=== PATIENT | female | born 1980 | race American Indian/Alaskan Native ===

== ENCOUNTER 2019-03-17 07:33 | Emergency (ER) | payer MEDICAID ==
[~2019-03-17] VITALS: Ht 157.5 cm; Wt 69.7 kg
[~2019-03-17 07:33] MED LIST: ONDA4TAB6 PO; PROM12.512 PO
[2019-03-17] MEDS ORDERED: proCHLORperazine 10 MG/2 ml inj IV PRN (07:55)
[2019-03-17] MEDS ORDERED: normal saline 1000ML IV soln IVB ONE (07:55)
[2019-03-17 08:22] LABS: BASOPHILS # (AUTO) 0.1 X10'3 (0-0.2); BASOPHILS % (AUTO) 0.3 % (0-1); EOSINOPHILS % (AUTO) 0.1 % (0-6); HEMATOCRIT 38.5 % (35.0-45.0); HEMOGLOBIN 13.3 g/dl (12.0-16.0); LYMPHOCYTES # (AUTO) 1.4 X10'3 (1.1-4.8); LYMPHOCYTES % (AUTO) 7.8 % (21-51); MEAN CORPUSCULAR HEMOGLOBIN 31.8 PG (27.0-31.0); MEAN CORPUSCULAR HGB CONC 34.5 g/dL (33.0-36.5); MEAN CORPUSCULAR VOLUME 92.1 FL (78-98); MEAN PLATELET VOLUME 8.3 FL (7.4-10.4); MONOCYTES # (AUTO) 0.6 X10'3 (0-0.9); MONOCYTES % (AUTO) 3.2 % (2-12); NEUTROPHILS # (AUTO) 15.8 X10'3 (1.8-7.7); NEUTROPHILS % (AUTO) 88.6 % (42-75); PLATELET COUNT 422 X10'3 (140-440); RED BLOOD COUNT 4.18 X10'6 (4.20-5.60); RED CELL DISTRIBUTION WIDTH 12.5 % (11.5-14.5); WHITE BLOOD COUNT 17.8 X10'3 (4.5-11.0)
[2019-03-17 08:25] LABS: ALANINE AMINOTRANSFERASE 19 U/L (12-78); ALBUMIN 3.7 G/DL (3.4-5.0); ALBUMIN/GLOBULIN RATIO 0.9 (1.1-1.5); ALKALINE PHOSPHATASE 91 IU/L (46-116); ANION GAP 14 (8-16); ASPARTATE AMINO TRANSFERASE 19 U/L (10-37); BILIRUBIN,TOTAL 0.6 MG/DL (0.1-1.0); BLOOD UREA NITROGEN 11 MG/DL (7-18); BUN/CREATININE RATIO 12.4 (6.6-38.0); CALCIUM 9.3 MG/DL (8.5-10.1); CHLORIDE 104 MMOL/L (99-107); CREATININE 0.89 MG/DL (0.40-0.90); GLUCOSE 156 MG/DL (70-104); LIPASE 66 U/L (73-393); POTASSIUM 3.2 MMOL/L (3.5-5.1); SODIUM 141 MMOL/L (135-145); TOTAL CARBON DIOXIDE 23.1 MMOL/L (24-32); TOTAL PROTEIN 7.9 G/DL (6.4-8.2); eGFR 70 ML/MIN
--- NOTE | 2019-03-17 09:00 | NUR ---
notified of WBC and K levels at this time.
[2019-03-17 09:28] LABS: URINE HCG NEGATIVE (NEG)
[2019-03-17] MEDS ORDERED: potassium Cl 10 mEq/100mL bag IV ONE (09:30)
[2019-03-17 09:44] LABS: CLARITY,URINE CLOUDY (Clear); COLOR,URINE YELLOW (Yellow); GLUCOSE, URINE NEGATIVE (Neg); KETONES,URINE >=80 mg/dl (Neg); LEUKOCYTE ESTERASE ,URINE LARGE (Neg); NITRITES, URINE POSITIVE (Neg); OCCULT BLOOD,URINE LARGE (Neg); PH,URINE 7.5 (4.8-8.0); PROTEIN,URINE 100 mg/dl (Neg)
[2019-03-17 10:07] LABS: UA COLLECTION TYPE CLN CATCH MIDSTREAM
[2019-03-17 10:15] LABS: RBC,URINE 0-2 /HPF (0-2)
[2019-03-17 10:16] LABS: BACTERIA,URINE 4+ /HPF (Neg); MUCUS STRANDS MODERATE /LPF (Neg); SQUAMOUS EPITHELIAL CELL,UR MODERATE /LPF (FEW)
[2019-03-17 10:17] LABS: WBC,URINE 50-100 /HPF (0-4)
[2019-03-17 10:26] VITALS: BP 118/66
[2019-03-17] MEDS ORDERED: CefTRIAXone/D5W-Rocephin 1gm 50 ML IV ONE (10:40)
[2019-03-17] MEDS ORDERED: PROC5TAB56 PO (10:43)
[2019-03-17] MEDS ORDERED: CIPR-230 PO (10:43)
== END 2019-03-17 11:22 | disposition home or self-care (01) ==
LOC: ER 07:34
DX: N39.0 Urinary tract infection, site not specified (principal); E87.6 Hypokalemia; R11.2 Nausea with vomiting, unspecified; Z90.710 Acquired absence of both cervix and uterus; Z98.51 Tubal ligation status; Z98.890 Other specified postprocedural states; Z56.0 Unemployment, unspecified; Z79.2 Long term (current) use of antibiotics; Z79.899 Other long term (current) drug therapy
CPT/HCPCS: 36415; 80053; 81001; 81025; 83690; 85025; 87077; 87088; 87186; 96365; 96367; 96375; 99283; J0696; J0780; J3480; J7030

== ENCOUNTER 2020-10-19 13:57 | Emergency (ER) | payer MEDICAID, OTHER ==
[~2020-10-19] VITALS: Ht 157.5 cm; Wt 67.1 kg
[~2020-10-19 13:57] MED LIST changes: +PROC5TAB56 PO
[2020-10-19 14:06] VITALS: BP 114/72
[2020-10-19] MEDS ORDERED: ondansetron 4mg rapidly disintigrating tab PO ONE (15:05)
[2020-10-19] MEDS ORDERED: HYDROcodone/acetaminophen 5mg/325mg tablet PO ONE (15:05)
[2020-10-19] MEDS ORDERED: AMOX-422 PO (15:06)
[2020-10-19] MEDS ORDERED: IBUP-1984 PO (15:06)
[2020-10-19] MEDS ORDERED: ketorolac tromethamine 15mg/ml inj. IM ONE (15:15)
--- NOTE | 2020-10-19 15:15 | NUR ---
Patient states she cannot take Lorrie Rudd aware. Orders for toradol placed.
[2020-10-20] MEDS ORDERED: FLUO-1 PO (19:27)
[2020-10-20] MEDS ORDERED: BUPR8TAB4 SL (19:27)
[2020-10-20] MEDS ORDERED: LISI1TAB32 PO (19:27)
== END 2020-10-19 15:39 | disposition home or self-care (01) ==
LOC: ER 13:57
DX: K04.7 Periapical abscess without sinus (principal); Z90.710 Acquired absence of both cervix and uterus; Z98.51 Tubal ligation status; Z56.0 Unemployment, unspecified; Z79.899 Other long term (current) drug therapy
CPT/HCPCS: 96372; 99283; J1885

== ENCOUNTER 2020-11-03 11:19 | Emergency (ER) | payer MEDICAID, OTHER ==
[~2020-11-03] VITALS: Ht 157.5 cm; Wt 65.7 kg
[~2020-11-03 11:19] MED LIST changes: +BUPR8TAB4 SL; +FLUO-1 PO; +LISI1TAB32 PO; -ONDA4TAB6 PO; -PROC5TAB56 PO; -PROM12.512 PO
[2020-11-03 11:24] VITALS: BP 136/82
[2020-11-03] MEDS ORDERED: ketorolac tromethamine 15mg/ml inj. IM ONE (12:35)
[2020-11-03] MEDS ORDERED: AMOX-580 PO (12:37)
[2020-11-03] MEDS ORDERED: FLUC150T PO (12:37)
[2020-11-03] MEDS ORDERED: CHLO473M3 PO (12:37)
== END 2020-11-03 13:05 | disposition home or self-care (01) ==
LOC: ER 11:19
DX: K04.7 Periapical abscess without sinus (principal); Z90.710 Acquired absence of both cervix and uterus; Z98.51 Tubal ligation status; Z72.89 Other problems related to lifestyle; Z56.0 Unemployment, unspecified; Z79.2 Long term (current) use of antibiotics; Z79.899 Other long term (current) drug therapy
CPT/HCPCS: 96372; 99283; J1885

== ENCOUNTER 2020-11-06 05:28 | Emergency (ER) | payer MEDICAID, OTHER ==
[~2020-11-06] VITALS: Ht 157.5 cm; Wt 68.2 kg
[~2020-11-06 05:28] MED LIST changes: +AMOX-580 PO; +CHLO473M3 PO
[2020-11-06] MEDS ORDERED: proCHLORperazine 10 MG/2 ml inj IV ONE (06:00)
[2020-11-06 06:10] LABS: BASOPHILS # (AUTO) 0.1 X10'3 (0-0.2); BASOPHILS % (AUTO) 0.7 % (0-1); EOSINOPHILS # (AUTO) 0.4 X10'3 (0-0.9); EOSINOPHILS % (AUTO) 3.7 % (0-6); HEMATOCRIT 37.1 % (35.0-45.0); HEMOGLOBIN 12.9 g/dl (12.0-16.0); LYMPHOCYTES # (AUTO) 4.2 X10'3 (1.1-4.8); MEAN CORPUSCULAR HEMOGLOBIN 32.7 PG (27.0-31.0); MEAN CORPUSCULAR HGB CONC 34.8 g/dL (33.0-36.5); MEAN CORPUSCULAR VOLUME 93.8 FL (78-98); MONOCYTES # (AUTO) 0.7 X10'3 (0-0.9); MONOCYTES % (AUTO) 6.1 % (2-12); NEUTROPHILS # (AUTO) 5.4 X10'3 (1.8-7.7); NEUTROPHILS % (AUTO) 50.5 % (42-75); PLATELET COUNT 431 X10'3 (140-440); RED BLOOD COUNT 3.96 X10'6 (4.20-5.60); RED CELL DISTRIBUTION WIDTH 12.2 % (11.5-14.5); WHITE BLOOD COUNT 10.7 X10'3 (4.5-11.0)
[2020-11-06 06:24] LABS: ALANINE AMINOTRANSFERASE 12 U/L (12-78); ALBUMIN 3.4 G/DL (3.4-5.0); ALBUMIN/GLOBULIN RATIO 0.9 (1.1-1.5); ALKALINE PHOSPHATASE 74 IU/L (46-116); ANION GAP 11 (8-16); ASPARTATE AMINO TRANSFERASE 23 U/L (10-37); BILIRUBIN,TOTAL 0.2 MG/DL (0.1-1.0); BLOOD UREA NITROGEN 11 MG/DL (7-18); BUN/CREATININE RATIO 13.6 (6.6-38.0); CHLORIDE 106 MMOL/L (99-107); CREATININE 0.81 MG/DL (0.40-0.90); GLUCOSE 116 MG/DL (70-104); LIPASE 66 U/L (73-393); POTASSIUM 3.4 MMOL/L (3.5-5.1); SODIUM 141 MMOL/L (135-145); TOTAL CARBON DIOXIDE 23.8 MMOL/L (24-32); TOTAL PROTEIN 7.2 G/DL (6.4-8.2); eGFR 78 ML/MIN
[2020-11-06] MEDS ORDERED: ONDA4TAB6 PO (06:38)
[2020-11-06] MEDS ORDERED: normal saline 1000ML IV soln IVB ONE ×2 (06:40→08:10)
[2020-11-06] MEDS ORDERED: ondansetron/PF 4mg/2ml inj IV ONE (06:40)
[2020-11-06 06:55] LABS: ETHANOL < 0.010 GM/DL (0.0-0.010)
[2020-11-06 08:31] VITALS: BP 102/68
[2020-11-06 08:46] LABS: URINE HCG NEGATIVE (NEG)
[2020-11-06 08:47] LABS: CLARITY,URINE CLOUDY (Clear); COLOR,URINE YELLOW (Yellow); GLUCOSE, URINE NEGATIVE (Neg); KETONES,URINE >=80 mg/dl (Neg); LEUKOCYTE ESTERASE ,URINE NEGATIVE (Neg); NITRITES, URINE NEGATIVE (Neg); OCCULT BLOOD,URINE NEGATIVE (Neg); PROTEIN,URINE NEGATIVE (Neg)
[2020-11-06 08:54] LABS: MUCUS STRANDS MANY /LPF (Neg); SQUAMOUS EPITHELIAL CELL,UR MANY /LPF (FEW)
[2020-11-06 08:55] LABS: BACTERIA,URINE 1+ /HPF (Neg); WBC,URINE 0-4 /HPF (0-4)
[2020-11-06 09:00] LABS: URINE AMPHETAMINE SCREEN NEGATIVE (Neg); URINE BARBITUATE SCREEN NEGATIVE (Neg); URINE BENZODIAZEPINES SCREEN NEGATIVE (Neg); URINE CANNABINOID SCREEN POSITIVE (Neg); URINE COCAINE SCREEN NEGATIVE (Neg); URINE METHADONE SCREEN NEGATIVE (Neg); URINE OPIATE SCREEN NEGATIVE (Neg); URINE PHENCYCLIDINE SCREEN NEGATIVE (Neg)
[2020-11-06 09:01] LABS: UA COLLECTION TYPE CLN CATCH MIDSTREAM
== END 2020-11-06 09:32 | disposition home or self-care (01) ==
LOC: ER 05:28
DX: A08.4 Viral intestinal infection, unspecified (principal); Z90.710 Acquired absence of both cervix and uterus; Z98.51 Tubal ligation status; Z72.89 Other problems related to lifestyle; Z56.0 Unemployment, unspecified; Z79.899 Other long term (current) drug therapy
CPT/HCPCS: 36415; 80053; 80305; 80320; 81001; 81025; 83690; 85025; 96361; 96374; 96375; 99284; J0780; J2405; J7030

== ENCOUNTER 2021-09-05 06:22 | Day surgery (SDC) | payer OTHER, MEDICAID ==
[~2021-09-05] VITALS: Ht 160 cm; Wt 72.0 kg
[~2021-09-05 06:22] MED LIST changes: -AMOX-580 PO; -LISI1TAB32 PO; +LISI1TAB49 PO; +ONDA4TAB6 PO
[2021-09-05] MEDS ORDERED: normal saline 1000ml 1,000 ML IV SCH (06:40)
[2021-09-05 06:49] VITALS: BP 120/68
[2021-09-05] MEDS ORDERED: [UNRECOGNIZED DRUG - OTHER] PO (06:52)
[2021-09-05] MEDS ORDERED: fentaNYL/PF 50MCG/1 ML 2ML syringe ONE (08:14)
[2021-09-05] MEDS ORDERED: heparin sodium, porcine/PF 100unit/ml 5ML syringe ONE (08:14)
[2021-09-05] MEDS ORDERED: midazolam 1 mg/ML 2ml injection ONE (08:14)
[2021-09-05] MEDS ORDERED: clindamycin 600mg/D5W 50ml 50 ML IV ONE (09:38)
[2021-09-05 09:53] VITALS: BP 114/70
[2021-09-05 10:00] VITALS: BP 103/72
[2021-09-05 10:15] VITALS: BP 109/72
[2021-09-05 10:30] VITALS: BP 114/70
== END 2021-09-05 10:40 | disposition home or self-care (01) ==
LOC: SSTAY O 06:22
PROVIDERS: ATTEND Radiology Vascular & Interventional Radiology
DX: C50.811 Malignant neoplasm of overlapping sites of right female breast (principal); D18.01 Hemangioma of skin and subcutaneous tissue; Z79.899 Other long term (current) drug therapy; Z98.51 Tubal ligation status; Z90.710 Acquired absence of both cervix and uterus; Z98.890 Other specified postprocedural states; Z72.89 Other problems related to lifestyle
CPT/HCPCS: 36561; 76937; 77001; 99152; 99153; C1769; C1788; C1894; J1642; J2250; J3010; J3490